=== PATIENT | male | born 1990 | race Caucasian/White ===

== ENCOUNTER 2024-07-09 09:35 | Emergency (ER) | payer SELFPAY ==
[2024-07-09 09:38] VITALS: BMI 25.7
[2024-07-09 10:03] VITALS: BP 123/74; PULSE 94; RESP 19; TEMP 37; O2SAT 97
--- NOTE | 2024-07-09 10:03 | XR_ITS ---
Examination: Right knee 4 views TECHNIQUE: AP oblique lateral axial right knee 4 views Exam date and time: July 09, 2024 1011 hours INDICATIONS: Patient fell today with injury to the knee, knee pain. FINDINGS: Poorly defined opacities in the soft tissue prepatellar No fracture or patellar dislocation IMPRESSION: Poorly defined opacities in the soft tissue prepatellar, clinical correlation advised
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
[2024-07-09] MEDS: KETOROLAC INJ 60 MG/2 ML VIAL 30 MG IM (10:28)
== END 2024-07-09 11:42 | disposition home or self-care (01) ==
PROVIDERS: Emergency Provider Emergency Medicine
DX: S83.91XA Sprain of unspecified site of right knee, initial encounter (principal); V89.2XXA Person injured in unspecified motor-vehicle accident, traffic, initial encounter
CPT/HCPCS: 73564; 96372; 99283; J1885